=== PATIENT | female | born 1985 | race Caucasian/White ===

== ENCOUNTER 2016-11-01 21:00 | Emergency (ER) | payer OTHER ==
--- NOTE | ~2016-11-01 | CT2 ---
[facility] A Service of [facility] RADIOLOGY TEXT RESULTS PATIENT: EDWIN COSTA LOCATION: SED : 89 UNIT #: [id number] AGE: [address]: LY GARCIA SEX: F ORDER DR: [id number] [place] [id number] E MR#: [id number] Acc #: [id number] NAME: EDWIN COSTA. : 1985 SEX: F STUDY DATE/TIME: 11/01/2016 22:43 UNIT: SED ROOM: STUDY DESCRIPTION: CT Abd and Pelv W Cont Attending Physician: Ly Garcia Aprn Referring Physician: Ly Garcia Aprn Ordering Physician: Ly Garcia Aprn Primary Care Physician: Primary Care Physician No MEDICAL IMAGING REPORT This report is preliminary unless electronic signature is present. EXAM CT abdomen and pelvis with contrast INDICATION Left flank pain, frequent urination for a couple of days. TECHNIQUE The patient was given 100 mL Isovue-370 and axial 5 mm images were obtained through the abdomen and pelvis. Sagittal and coronal reconstructions were generated. This CT exam was performed with one or more of the following radiation dose reduction techniques: automatic exposure control, adjustment of mA and/or kV according to patient size, and iterative reconstruction. FINDINGS Lung bases are clear. The liver, gallbladder, spleen, pancreas, adrenal glands and kidneys are normal in appearance. The aorta is normal in size and there is no adenopathy. The appendix appears normal. The bowel appears normal. The left ovary has a cyst measuring 1.8 cm in diameter. The uterus and right ovary appear normal. The bladder is normal. There is a metal samantha in the right femur, otherwise the bones are unremarkable. IMPRESSION 1. A 1.8 cm left ovarian cyst which is probably physiologic in a patient of this age. 2. Otherwise the study is normal. Dictated by... [facility] A Service of [facility] RADIOLOGY TEXT RESULTS PATIENT: EDWIN COSTA LOCATION: SED : 89 UNIT #: [id number] AGE: [address]: LY GARCIA SEX: F ORDER DR: Van Carrizales M.D. THIS IS AN ELECTRONICALLY VERIFIED REPORT Van Carrizales M.D. at 11/03/2016 5:01 AM ALFRED/maria t TD: 11/02/2016 23:08 JOB #: [id number] MEDICAL IMAGING REPORT Page 1 of 1
[2016-11-01] MEDS ORDERED: DITROPAN (21:09)
[2016-11-01 21:53] LABS: URINE SOURCE CLEAN CATCH
[2016-11-01 21:56] LABS: URINE APPEARANCE CLEAR; URINE BILIRUBIN NEG (NEG); URINE BLOOD NEG (NEG); URINE COLOR YELLOW; URINE GLUCOSE NEG (NORM); URINE KETONE NEG (NEG); URINE LEUKOCYTE ESTERASE NEG (NEG); URINE NITRATE NEG (NEG); URINE PROTEIN NEG (NEG); URINE UROBILINOGEN 0.2 MG/DL (NORM)
[2016-11-01 22:01] LABS: MICRO INDICATED? NO
[2016-11-01 22:06] LABS: BASOPHIL% 0.5 % (0-2.5); EOSINOPHIL# 0.3 X10e3 (0-0.7); EOSINOPHIL% 6.2 % (0.0-7.0); HEMATOCRIT 36.6 % (35.0-45.0); HEMOGLOBIN 12.4 gm/dL (12.0-16.0); LYMPHOCYTE% 36.8 % (17.0-45.0); MEAN CORPUSCULAR HEMOGLOBIN 32.2 PG (28-34); MEAN CORPUSCULAR HGB CONC 33.9 g/dL (30-36); MEAN PLATELET VOLUME 8.3 FL (6.5-11.5); MONOCYTE# 0.5 X10e3 (0-1.0); MONOCYTE% 8.8 % (3.0-12.0); NEUTROPHIL# 2.5 X10e3 (1.5-7.1); NEUTROPHIL% 47.7 % (40-75); PLATELET COUNT 266 X10e3 (140-420); RED BLOOD COUNT 3.85 X10e (3.90-5.30); RED CELL DISTRIBUTION WIDTH 13.4 % (11.0-15.5); WHITE BLOOD COUNT 5.3 X10e3 (4.0-10.5)
[2016-11-01 22:10] LABS: DIFF IND NO
[2016-11-01 22:22] LABS: ALBUMIN SERUM 4.6 g/dL (3.5-5.0); ALKALINE PHOSPHATASE 35 U/L (32-92); ALT (SGPT) 29 U/L (10-40); AST (SGOT) 27 U/L (10-42); BILIRUBIN, DIRECT <0.1 mg/dL (0.0-0.2); BILIRUBIN,INDIRECT 0.2 mg/dL (0.0-0.9); BILIRUBIN,TOTAL 0.3 mg/dL (0.2-2.0); BLOOD UREA NITROGEN 17 mg/dL (9-23); BUN/CREATININE RATIO 24.28; CALCIUM SERUM 9.2 mg/dL (8.4-10.2); CARBON DIOXIDE 27 mmol/L (22-31); CHLORIDE 103 mmol/L (100-111); CREATININE SERUM 0.7 mg/dL (0.6-1.4); GLOM FILT RATE Estimated 117.1 mL/min (>60); GLUCOSE FASTING 89 mg/dL (70-110); LIPASE 32 U/L (22-51); POTASSIUM 3.6 mmol/L (3.5-5.1); PROTEIN TOTAL SERUM 7.5 g/dL (6.0-8.3); SODIUM 137 mmol/L (135-145)
== END 2016-11-01 23:42 | disposition home or self-care (01) ==
LOC: SED 21:00
PROVIDERS: Nurse Practitioner Family
DX: R30.0 Dysuria (principal); R10.32 Left lower quadrant pain; Z88.5 Allergy status to narcotic agent
CPT/HCPCS: 36415; 74177; 80048; 80076; 81003; 83690; 84703; 85025; 99284; Q9967